=== PATIENT | male | born 1965 | race Caucasian/White ===

== ENCOUNTER 2020-02-13 10:03 | Day surgery (SDC) | payer OTHER ==
[2020-02-08 13:10] VITALS: BMI 35.4
[~2020-02-13 10:03] MED LIST: LACTATED RINGERS 1,000 ML IV SCH; LIDOCAINE 1% (10MG/ML) FOR IV START INTRADERMA PRN
[2020-02-13 10:22] VITALS: RESP 16; TEMP 97.2
[2020-02-13] MEDS ORDERED: PROPOFOL 10 MG/ML 20 ML VIAL IV ONE (11:03)
[2020-02-13] MEDS ORDERED: LIDOCAINE 1% INJ 10MG/ML (20 ML MDV) ONE (11:03)
--- NOTE | 2020-02-13 11:06 | P.GSHP ---
History of Present Illness H&P Date: 02/13/20 Chief Complaint: Epigastric abdominal pain, change in bowel habits Patient here today for upper and lower endoscopy. Patient has had complaints of epigastric abdominal pain. Some right lower quadrant abdominal pain. Describe some change in bowel habits. Personal history of adenoma. History of previous sigmoid colectomy for diverticulitis. Pain in the right lower abdomen worse with stretching and movement. History of previous right inguinal hernia repair. Past Medical History Past Medical History: Hyperlipidemia, Hypertension, Prostate Disorder Additional Past Medical History / Comment(s): Diverticulitis, intestinal blockage. bronchitis History of Any Multi-Drug Resistant Organisms: None Reported Past Surgical History: Bowel Resection, Hernia Repair Additional Past Surgical History / Comment(s): Cyst removal Past Anesthesia/Blood Transfusion Reactions: No Reported Reaction Additional Past Anesthesia/Blood Transfusion Reaction / Comment(s): No transfusion Smoking Status: Current every day smoker - Past Family History Mother Family Medical History: No Reported History Medications and Allergies Home Medications Medication Instructions Recorded Confirmed Type Hydrochlorothiazide 25 mg PO DAILY 04/19/14 02/13/20 History Atorvastatin [Lipitor] 20 mg PO DAILY 02/08/20 02/13/20 History Losartan Potassium [Cozaar] 25 mg PO DAILY 02/08/20 02/13/20 History Tamsulosin [Flomax] 0.4 mg PO DAILY 02/08/20 02/13/20 History Allergies Allergy/AdvReac Type Severity Reaction Status Date / Time No Known Allergies Allergy Verified 02/13/20 10:16 Surgical - Exam Vital Signs Temp Pulse Resp BP Pulse Ox 97.2 F L 85 16 149/85 96 02/13/20 10:20 02/13/20 10:20 02/13/20 10:20 02/13/20 10:20 02/13/20 10:20 Physical exam: General: Well-developed, well-nourished HEENT: Normocephalic, sclerae nonicteric Abdomen: Nontender, nondistended Extremities: No edema Neuro: Alert and oriented Assessment and Plan (1) Abdominal pain Narrative/Plan: Will proceed with upper and lower endoscopy at this time Current Visit: No Status: Acute Code(s): R10.9 - UNSPECIFIED ABDOMINAL PAIN SNOMED Code(s): 23141789
--- NOTE | 2020-02-13 11:23 | P.PCN ---
Date of Procedure: 02/13/20 Procedure(s) Performed: PREOPERATIVE DIAGNOSIS: Epigastric abdominal pain, bowel habits, history of adenoma POSTOPERATIVE DIAGNOSIS: Mild gastritis, small rectal polyp, mild diverticulosis PROCEDURE: 1. EGD with biopsy 2. Colonoscopy with snare polypectomy ANESTHESIA: [facility] [place] SURGEON: Rashaad Saez M.D. SPECIMENS: Antrum, polyp ENDOSCOPIC PROCEDURE: The patient was on the endoscopy table in the left decubitus position. The Olympus gastroscope was inserted into the oropharynx and passed under direct visualization to the region of the third portion of the duodenum. From that point the scope was slowly withdrawn inspecting all surfaces carefully. There were no neoplastic inflammatory or polypoid lesions throughout the duodenum. The pylorus was widely patent. The stomach was carefully inspected. There was mild gastritis present. A biopsy of the antrum took place to rule out H. pylori. Retroflexion revealed a normal hiatus. The esophagus was then carefully examined. There were no neoplastic inflammatory or polypoid lesions throughout the visualized esophagus. The patient was kept on the endoscopy table in the left decubitus position. The Olympus colonoscope was inserted into the anus and passed under direct visualization to the base of the cecum. The appendiceal orifice was visualized. From that point the scope was slowly withdrawn inspecting all surfaces carefully. There were no neoplastic inflammatory or polypoid lesions throughout the cecum, ascending, transverse, and descending colon. In the rectum a small polyp was seen distal to our colorectal anastomosis. This was removed using the snare with cautery technique. There was mild diverticulosis seen proximal to our anastomotic site. There was mild erythema of the mucosa just proximal to our anastomotic site. The anastomosis was widely patent. Digital rectal examination was normal. The patient was taken to the recovery room in stable condition per anesthesia guidelines. RECOMMENDATIONS: Await biopsy results. Follow-up colonoscopy 5 years.
[2020-02-13 11:50] VITALS: BP 128/86; PULSE 71
--- NOTE | 2020-02-15 11:19 | CDI ---
Date: 02.15.2020 CDS/Brain Picker Name: Yasmine Bess Phone: If any questions, call Janet Kelly Backup Operator at [phone] Patient Name: Walt Serna Admit Date 02.13.20 Discharge Date: 02.13.20 ATTENTION: The [facility] Coding Staff appreciate your assistance in clarifying documentation. Please respond to the clarification below the line at the bottom and electronically sign. The [facility] Coding staff will review the response and follow-up if needed. Please note: Queries are made part of the Legal Health Record. If you have any questions, please contact the Backup Operator. Dear Dr. Saez In your colonoscopy report you mention in the rectum a small polyp was seen distal to colorectal anastomosis. This was removed using the snare with cautery technique. This polyp is not mention in the path report. Was this polyp sent for path review? Thank you for your kind consideration. Polyp was too small to send and sample, polyp was essentially fulgurated by the polypectomy MTDD
== END 2020-02-13 12:20 | disposition home or self-care (01) ==
LOC: ORWHC2ENDO 10:03
PROVIDERS: ATTEND Surgery
DX: K62.1 Rectal polyp (principal); K57.30 Diverticulosis of large intestine without perforation or abscess without bleeding; K29.50 Unspecified chronic gastritis without bleeding; E78.5 Hyperlipidemia, unspecified; I10 Essential (primary) hypertension; G47.33 Obstructive sleep apnea (adult) (pediatric); F17.210 Nicotine dependence, cigarettes, uncomplicated; N40.0 Benign prostatic hyperplasia without lower urinary tract symptoms; Z86.018 Personal history of other benign neoplasm; Z98.0 Intestinal bypass and anastomosis status; Z90.49 Acquired absence of other specified parts of digestive tract; Z98.890 Other specified postprocedural states; Z87.09 Personal history of other diseases of the respiratory system; Z79.899 Other long term (current) drug therapy
CPT/HCPCS: 88305; 45385; 43239; J2001; J2704

== ENCOUNTER → 2021-01-16 | Outpatient (CLI) | payer OTHER ==
--- NOTE | 2021-01-17 09:10 | XR ---
Lumbosacral spine HISTORY: [id number] LUMBAGO 5 views of the lumbosacral spine correlated to CT scan dated 02/03/2016 There is a slight spinal curvature. Lumbar vertebral bodies show preserved height and bone mineraliza tion. There is multilevel spondylosis. No evident spondylolysis or spondylolisthesis. Sclerosis is pr esent in the posterior elements of the lower lumbar spine. Atherosclerotic vascular calcifications pr esent in the aortoiliac distribution. Loss of disc height is present greatest at L3-4, L4-5, L5-S1. IMPRESSION: Degenerative disc disease and facet arthropathy. There is a slight spinal curvature.
== END | disposition home or self-care (01) ==
LOC: RADXRYALE 15:56
PROVIDERS: ATTEND Physician Assistant Medical
DX: M51.37 Other intervertebral disc degeneration, lumbosacral region (principal); M43.9 Deforming dorsopathy, unspecified; M46.97 Unspecified inflammatory spondylopathy, lumbosacral region
CPT/HCPCS: 72110

== ENCOUNTER → 2021-08-01 | Outpatient (CLI) | payer OTHER ==
--- NOTE | 2021-08-01 13:51 | EST ---
EXERCISE STRESS AGE: 56 SEX: M HT: 5'10" WT: 250 lbs. PROTOCOL: Type 2 diabetes, hypertension STAGE: 3 DURATION OF EXERCISE: 8:00 HEART RATE REST: 89 BLOOD PRESSURE REST: 145/90 MAXIMUM HEART RATE ACHIEVED: 146 MAXIMUM BLOOD PRESSURE: 206/77 85% MPHR: 140 100% MPHR: 165 METS: 10.3 INDICATIONS: To evaluate for coronary artery disease in a patient with known diabetes. CLINICAL INFORMATION: Baseline EKG shows sinus rhythm, normal axis, normal intervals with poor R-wave progression. Patient exercised on Edgard protocol for a total of 8 minutes, achieving 9 METS, 88% of predicted maximal heart rate, without chest pain or diagnostic ST-segment depression. CONCLUSIONS: Above-average exercise tolerance. Negative stress test by EKG criteria. MMODL / IJN: [id number] /
== END | disposition home or self-care (01) ==
LOC: RADNMMAIN 08:39
PROVIDERS: ATTEND Family Medicine
DX: E11.9 Type 2 diabetes mellitus without complications (principal); E78.2 Mixed hyperlipidemia; I10 Essential (primary) hypertension; F17.210 Nicotine dependence, cigarettes, uncomplicated
CPT/HCPCS: 93017

== ENCOUNTER → 2022-01-09 | Outpatient (CLI) | payer OTHER ==
--- NOTE | 2022-01-09 17:52 | US ---
EXAMINATION TYPE: US venous doppler duplex LE LT DATE OF EXAM: 01/09/2022 5:37 PM COMPARISON: NONE CLINICAL HISTORY: R22.42 LOCALIZED SWELLING, MASS AND JUNIOR,M79.662,E11.65,K84146. Left leg pain and swe lling SIDE PERFORMED: Left TECHNIQUE: The lower extremity deep venous system is examined utilizing real time linear array sonog kenia with graded compression, doppler sonography and color-flow sonography. VESSELS IMAGED: Common Femoral Vein Deep Femoral Vein Greater Saphenous Vein * Femoral Vein Popliteal Vein Small Saphenous Vein * Proximal Calf Veins (* superficial vessels) Left Leg: Appears negative for DVT IMPRESSION: No evidence for DVT at this time.
== END | disposition home or self-care (01) ==
LOC: RADUSWWP 16:55
PROVIDERS: ATTEND Family Medicine
DX: M79.662 Pain in left lower leg (principal); R22.42 Localized swelling, mass and lump, left lower limb; F17.210 Nicotine dependence, cigarettes, uncomplicated

== ENCOUNTER → 2023-02-26 | Outpatient (CLI) | payer BC ==
--- NOTE | 2023-02-26 17:40 | XR ---
EXAMINATION TYPE: XR Hip Complete LT DATE OF EXAM: 02/26/2023 4:55 PM INDICATION: Patient age:Male; 57 years old; Reason for study: [id number] LT HIP PAIN; [facility]. COMPARISON: CT abdomen pelvis 02/03/2016 TECHNIQUE: The left hip was examined in the frontal and lateral projections . FINDINGS: No evidence of any acute osseous pathology, joint dislocation, or soft tissue swelling. No significant joint space narrowing or spurring. IMPRESSION: No acute osseous pathology.
== END | disposition home or self-care (01) ==
LOC: RADXRYALE 16:36
PROVIDERS: ATTEND Physician Assistant
DX: M25.552 Pain in left hip (principal)
CPT/HCPCS: 73502

== ENCOUNTER → 2023-03-04 | Outpatient (CLI) | payer BC ==
--- NOTE | 2023-03-04 17:36 | MR ---
EXAMINATION TYPE: MR lumbar spine wo con DATE OF EXAM: 03/04/2023 COMPARISON: None HISTORY: 57-year-old male M5 4.42, Low back pain into left lower extremity TECHNIQUE: Multiplanar, multisequence images of the lumbar spine were acquired without IV contrast. FINDINGS: Vertebral body heights are preserved and alignment is maintained. Facet arthropathy mid to lower lumbar spine. Some ligamentum flavum thickening also present in the lo wer lumbar spine. Mild multilevel degenerative disc disease with desiccated and bulging discs. This compresses the ventral thecal sac at L4-L5 mildly narrowing the spinal canal. No significant spi nal canal stenosis. Conus medullaris is normal. Mild heterogeneous marrow signal suggesting red marrow hyperplasia. This may be seen in setting of an emia, obesity, smoking, chronic disease. There is a fatty matrix hemangioma within the L4 vertebral body. Some scattered fatty Modic type II endplate changes anteriorly at T11-T12, L1-L2, and posteriorly at L4-L5. On the right, results in mild to moderate neuroforaminal stenosis at L4-L5 and mild at L3-L4. On the left, changes of the moderate neuroforaminal stenosis at L4-L5 and mild at L5-S1. However, in addition, there is a left paracentral/intraforaminal disc protrusion at L4-L5 which may a but the traversing left L5 nerve root. No prevertebral or paravertebral soft tissue abnormality seen. Incidental duplicated IVC. IMPRESSION: 1. Mild multilevel degenerative disc disease, greatest at L4-L5 where disc bulge mildly narrows the s yue canal. No significant spinal canal stenosis seen. 2. Hypertrophic facet arthropathy and ligamentum flavum thickening mid to lower lumbar spine. 3. Changes result in very minimal mild to moderate neural foraminal narrowing mid to lower lumbar spi ne, moderate on the left at L4-L5. 4. In addition, at L4-L5, a left paracentral/intraforaminal disc protrusion may abut the traversing l eft L5 nerve root.
== END | disposition home or self-care (01) ==
LOC: RADMRIMAIN 11:50
PROVIDERS: ATTEND Family Medicine
DX: M51.16 Intervertebral disc disorders with radiculopathy, lumbar region (principal); M47.26 Other spondylosis with radiculopathy, lumbar region; M99.73 Connective tissue and disc stenosis of intervertebral foramina of lumbar region; R53.1 Weakness
CPT/HCPCS: 72148

== ENCOUNTER → 2023-08-25 | Outpatient (CLI) | payer BC ==
[2023-08-25 13:02] LABS: African American GFR (CKD) >90 (>60 ml/min/1.73 sqM); Blood Urea Nitrogen 18 mg/dL (9-20); Non-African American GFR(CKD) >90 (>60 ml/min/1.73 sqM)
--- NOTE | 2023-08-25 21:21 | CT ---
EXAMINATION TYPE: CT abdomen pelvis w con DATE OF EXAM: 08/25/2023 COMPARISON: 02/03/2016 HISTORY: 58-year-old male K57.32, Diverticulitis TECHNIQUE: Contiguous axial scanning of the abdomen and pelvis following administration of 100 ml Iso ge 300 IV contrast. Delayed images through the kidneys and coronal/sagittal reconstructions perform ed. CT DLP: 1787.20 mGycm Automated exposure control for dose reduction was used. FINDINGS: LUNG BASES: No significant abnormality is appreciated. LIVER/GB: Liver enlargement 19.7 cm with diminished attenuation. No focal lesion. No biliary ductal d ilatation. Portal venous system is patent. Gallbladder within normal limits. PANCREAS: No significant abnormality is seen. SPLEEN: Tiny hilar and anterior splenules. No significant abnormality is seen. ADRENALS: No significant abnormality is seen. KIDNEYS: No significant abnormality is seen. LYMPH NODES: No significant abnormality is seen. BOWEL: No dilated small bowel, free fluid, or free air. Normal appendix. Oral contrast progressed to the splenic flexure of the colon. Left-sided colonic diverticulosis. Some pericolonic stranding along the superior aspect of the proximal to mid sigmoid colon, coronal image 50 shows no convincing infla mmation on the axial images. There is a staple line related to prior resection and reanastomosis at t he distal sigmoid colon. PELVIS: Bladder is urine distended. Prostate gland measures 4.5 cm wide. Patulous inguinal canals. No abnormal fluid collection in the pelvis or pelvic lymphadenopathy. OTHER: Mild atherosclerotic calcifications throughout the infrarenal abdominal aorta and common iliac arteries. Incidental duplicated infrarenal IVC. Tiny periumbilical hernia. BONES: Degenerative changes at the bilateral SI joints. Hypertrophic facet arthropathy lower lumbar s pine along with mild to moderate degenerative disc disease. DISH in the lower thoracic spine. IMPRESSION: 1. POSTSURGICAL CHANGE OF PRIOR RESECTION AND REANASTOMOSIS OF THE DISTAL SIGMOID COLON. 2. LEFT-SIDED COLONIC DIVERTICULOSIS. SOME PERICOLONIC STRANDING ALONG THE PROXIMAL TO MID SIGMOID CO SUE, CORONAL IMAGE 50, LIKELY CORRESPONDS TO PROMINENT PERICOLONIC VESSELS RATHER THAN MILD ACUTE DIV ERTICULITIS. CORRELATE WITH PATIENT'S SYMPTOMS. 3. 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 APPROPRIATE CLINICAL MANAGEMENT ADVISED.
== END | disposition home or self-care (01) ==
LOC: RADCTMAIN 12:25
PROVIDERS: ATTEND Surgery
DX: K57.30 Diverticulosis of large intestine without perforation or abscess without bleeding (principal); K76.0 Fatty (change of) liver, not elsewhere classified; R16.0 Hepatomegaly, not elsewhere classified
CPT/HCPCS: 82565; 84520; 74177; 36415; Q9967